=== PATIENT | female | born 1970 | race Caucasian/White ===

== ENCOUNTER 2021-10-12 13:00 | Outpatient (RCR) | payer MEDICARE, MEDICAID, SELFPAY ==
--- NOTE | 2021-09-06 14:52 | REH.OT ---
No charge Patient arrived to outpatient OT appointment and it was determined that her needs would be better served by seeing PT. This was facilitated and a PT evaluation was scheduled.
== END 2022-09-12 11:24 | disposition home or self-care (01) ==
PROVIDERS: PCP Internal Medicine; Visit Provider Internal Medicine
DX: R53.1 Weakness (principal); R53.83 Other fatigue; R26.9 Unspecified abnormalities of gait and mobility; Z51.89 Encounter for other specified aftercare
CPT/HCPCS: 84443; 97012; 97110; 97112; 97162; 97535

== ENCOUNTER 2022-10-17 15:44 | Outpatient (CLI) | payer MEDICARE, MEDICAID, SELFPAY | END 2022-10-17 15:45 | disposition home or self-care (01) | LOC: NFLDREF 15:46 | PROVIDERS: PCP Internal Medicine; Visit Provider Internal Medicine | DX: E03.9 Hypothyroidism, unspecified (principal); I10 Essential (primary) hypertension | CPT/HCPCS: 84443 ==

== ENCOUNTER 2022-10-20 11:24 | Emergency (ER) | payer MEDICARE, MEDICAID, SELFPAY ==
[2022-10-20 11:31] VITALS: BP 206/188; PULSE 77; RESP 18; TEMP 35.7; O2SAT 96
--- NOTE | 2022-10-20 11:46 | ED_ITS ---
HPI - General Adult General Time Seen by Provider: 11:46 Date Seen: 10/20/22 Chief complaint: Unspecified Complaint, Adult Stated complaint: spinal cord injury in past- pain is coming back Time Seen by Provider: 10/20/22 11:25 Source: patient Mode of arrival: ambulatory Limitations: no limitations History of Present Illness HPI narrative: Patient is a 52-year-old female with history of anxiety, hypertension, hypothyroidism, previous spinal cord injury presented emergency department for neck pain and headache. She states she has a history of spinal cord issues 10 years ago but the pain is a band much better and she has not been taking any pain medication up until this past week. She states now over the past week she has had 3 different days which she has had severe neck pain that radiates into her head causing nausea and vomiting. She states this feels like her previous symptoms. She has been taking Tylenol ibuprofen home without improvement in her symptoms. She has describes it as a spasm sensation. She has had some associated nausea and vomiting. She states she was scared she is going to have bowel incontinence but states this occurs while she is getting nauseated and vomits it she feels like pressures might cause her to have the bowel incontinence. Denies numbness, weakness, chest pain, shortness breath, abdominal pain, lightheadedness, dizziness, vision changes. Denies any recent trauma or injuries to her neck. Of note she is hypertensive but states she was taking blood pressure medications several years ago. Related Data Previous Rx's Medication Instructions Recorded cyclobenzaprine 10 mg tablet 10 mg PO TID #15 tabs 10/20/22 ondansetron 4 mg disintegrating 4 mg PO Q6H #20 tabs 10/20/22 tablet Allergies Allergy/AdvReac Type Severity Reaction Status Date / Time No Known Allergies Allergy Unknown Verified 10/20/22 11:33 Review of Systems Status of ROS: Reports: 10 or more systems reviewed and unremarkable except as noted in History and below [facility] Medical History (Updated 10/20/22 @ 13:01 by Luis Wellington DO) Hypothyroidism ?E03.9 - Hypothyroidism, unspecified (ICD-10) Spinal cord injury Anxiety ?F41.9 - Anxiety disorder, unspecified (ICD-10) Surgical History (Updated 09/01/21 @ 11:16 by Gagan Le) Status post abdominal hysterectomy ?Z90.710 - Acquired absence of both cervix and uterus (ICD-10) Social History Smoking Status: Never smoker Little interest or pleasure in doing things: not at all Feeling down, depressed, or hopeless: not at all Exam Narrative: Exam Narrative: Const: Well-nourished, Well-developed, in moderate distress Eyes: PERRL, no conjunctival injection, and symmetrical lids ENMT: Atraumatic external nose and ears. Moist mucous membranes. Neck: Symmetric, trachea midline, No thyromegaly. CVS: RRR, No murmurs or gallops. Peripheral pulses 2+ and equal in all extremities RESP: Unlabored respiratory effort. Clear to auscultation bilaterally. GI: Nontender/Nondistended, No rebound or guarding. MSK:Extremities w/o deformity, Normal Active ROM Skin: Warm, Dry. No rashes or lesions. Neuro: Normal Muscle tone, No focal neurological deficits. Psych: Awake, Alert, & Oriented x3. Appropriate mood and affect. Const: Vital Signs, click to edit/add: Vital Signs - 24 hr 10/20/22 11:31 Temperature 96.3 F L Pulse Rate [Right Pulse Oximeter] 77 Respiratory Rate 18 Blood Pressure [Ri ght Upper Arm] 206/188 H Pulse Oximetry 96 Oxygen Delivery Me thod Room Air Course Vital Signs Vital signs: Initial Vital Signs Temperature 96.3 F L 10/20/22 11:31 Temperature Source Temporal Artery Scan 10/20/22 11:31 Pulse Rate 77 10/20/22 11:31 Respiratory Rate 18 10/20/22 11:31 Blood Pressure 206/188 H 10/20/22 11:31 Blood Pressure Mean 194 H 10/20/22 11:31 Blood Pressure Position Sitting 10/20/22 11:31 Pulse Oximetry 96 10/20/22 11:31 Oxygen Delivery Method Room Air 10/20/22 11:31 Vital Signs Temperature 96.3 F L 10/20/22 11:31 Pulse Rate 77 10/20/22 11:31 Respiratory Rate 18 10/20/22 11:31 Blood Pressure 206/188 H 10/20/22 11:31 Pulse Oximetry 96 10/20/22 11:31 Oxygen Delivery Method Room Air 10/20/22 11:31 Temperature 96.3 F L 10/20/22 11:31 Pulse Rate 77 10/20/22 11:31 Respiratory Rate 18 10/20/22 11:31 Blood Pressure 206/188 H 10/20/22 11:31 Pulse Oximetry 96 10/20/22 11:31 Oxygen Delivery Method Room Air 10/20/22 11:31 Medical Decision Making MDM Narrative Medical decision making narrative: Patient is a 52-year-old female presenting to emergency department for neck pain and headache. She had similar symptoms 10 years ago has been chronically having issues with that but states he is usually throughout her whole back. Says the past week things up in worse and she is at 3 days with severe pain. Denies any recent injuries. Tylenol appropriate not been helping. Has had Tylenol and ibuprofen with no improvement in symptoms. Toradol ordered for pain along with Flexeril for the muscle spasms. Zofran was given for nausea. After her medication she states her symptoms improved significantly and feels good to go home. She states she will set up appointment with the primary care provider in her neurologist. She was hypertensive but is having no concerning symptoms at this time notes make me think a further workup was necessary. She will be discharged home. I informed it did speak to her primary care provider about her blood pressure also. She is agreeable to this plan. Discharge Plan Discharge Clinical Impression: Cervical paraspinal muscle spasm Patient Disposition: Home, Self-Care Condition: Improved Instructions: Muscle Spasm (ED) Additional Instructions: Follow-up with the primary care provider new neurologist. Take ibuprofen every 4-6 hours for pain as needed. Take the Flexeril every 8 hours as needed for your neck pain. Take the Zofran every 6 hours as needed for nausea. Use ice packs and heat for your neck pain when it occurs and try to keep your neck stretched out. Activity Level: No Restrictions Discharge Diet: Regular Prescriptions: New cyclobenzaprine 10 mg tablet 10 mg PO TID Qty: 15 0RF ondansetron 4 mg tablet,disintegrating 4 mg PO Q6H Qty: 20 0RF Follow Up/Referrals: Robbie Galvin MD [Primary Care Provider] - Stand Alone Forms: [employer] Info Instructions
[2022-10-20] MEDS: KETOROLAC 15 MG/ML inj IVP (12:06)
[2022-10-20] MEDS: CYCLOBENZAPRINE HCL 10 MG TABLET PO (12:06)
[2022-10-20] MEDS: ONDANSETRON 2 MG/ML inj 4 MG IVP (12:06)
== END 2022-10-20 13:06 | disposition home or self-care (01) ==
PROVIDERS: Emergency Provider Student in an Organized Health Care Education/Training Program; PCP Internal Medicine
DX: M62.838 Other muscle spasm (principal)
CPT/HCPCS: 96374; 96375; 99283; 99284; A9270; J1885; J2405

== ENCOUNTER 2022-11-14 09:14 | Outpatient (RCR) | payer MEDICARE, MEDICAID, SELFPAY ==
--- NOTE | 2022-11-15 07:46 | PT.OPEX ---
[facility] Outpatient Eval Start: 11/14/22 08:41 Freq: Status: Active Protocol: Document 11/14/22 08:43 AMS (Rec: 11/14/22 16:20 AMS [id number]) E-signed By Marisela Greco PT Physical Therapy Outpatient Evaluation Insurance Information Recert Due Date 02/07/23 Insurance Name Medicaid Medical Diagnosis Cervical spasm Treating Diagnosis Cervicalgia Muscle weakness Pain in thoracic spine Referring MD Robbie Galvin Subjective Subjective Patient is a 52-year-old woman who has history of of central pain syndrome who has made a remarkable improvement over last several months. As result she stopped all of her medications. She was seen in the emergency room 10/20 with neck pain with radiation to her head and was treated with anti-inflammatories and muscle relaxants. She still having some symptoms but is getting better overall. She is willing to see physical therapy. When she stopped all her medications this includes her Synthroid that she has been on for years. Her TSH is still in the normal range but would like to go back on a small dose of Synthroid. No other significant symptoms noted. -Robbie Galvin 10/24, confirmed by patient Pt presents to physical therapy with reports of chronic, 10-year history of right-sided > left neck pain, sometimes radiating into her posterior shoulder blade area and into her head. She states she had a spinal cord surgery 10 years ago after a fall backwards, where she bent her upper spinal cord. She had surgery one year after this due to progressive neurologic weakness and inability to walk or move her arms, where she had three spinal cord levels in cervical spine fused with a plate and three cadaver bone grafts. She is not sure which levels she had fused in the C- spine. Since then, she has slowly worked on learning to walk again and recover strength day-to-day, not at PT but on her own. States she stayed in bed for much of that 10 years and had a staff member helping her care for herself during this time. She did work with speech and OT at that time too. No remaining gait instability or motor function deficits. Now, she feels her pain levels are improving, but never fully recovered like her motor function has. She was diagnosed with central cord syndrome and cervical stenosis . She has tried pain clinics ( three), which she didn't feel were helpful. She would localize pain to her posterior cervical spine, radiating up to the back of her head, describing it as sharp like someone is stabbing her in the back of the head, making her unfunctionable at times. She used to have associated N/V that started end of September, but this improved after ER visit and muscle relaxants/ nausea medicine. Also describes feelings of tightness in her neck and muscle spasms that can last for 20 minute at a time. She states she has numbness and tingling in her arms and legs, which is part of her central pain syndrome since the injury . For exercise, she now is able to walk and lifts light weights every other day, which she states doesn't seem to help her symptoms. Functional limitations/aggravating factors include lifting, reaching, sleeping, reading, working a job, and all activities. Overall, she states her pain is improving. PT has not been helpful in the past; she felt like the provider was not listening to what she wanted. Easing factors include rest, massage, and mental distraction. Has also tried injections and steroids as well, which did not help a few years ago. She has not worked for 10 years due to pain and is on long- term disability from [employer]. Her goals are to return to working, decrease her pain levels, and return to reading. Pain Comments Current: 05/04, worst 14/12 Date of Last Physician Visit 10/24/22 Current Work Status [facility] Disability Preferred Name Yessenia Precautions Treatment Precautions/Contraindications Hypothyroidism, hypertension, central pain syndrome s/p spinal cord injury 10 years ago (imaging done and fusion stable 1 year ago) Therapy Limitations/Systems Review Affect Objective Other/Pertinent Objective SPINAL ALIGNMENT/POSTURE: forward head, mildly rounded shoulders CERVICAL AROM Flexion: 30 deg* Extension: WNL, pain-free Right Rotation: 25 deg* Left Rotation: 40 deg* Right sidebend: 10 deg* Left sidebend: 20 deg* *pain in posterior neck Cervical PROM: Full and pain- free, mild pain with end-range right lateral flexion THORACIC ROM Full and pain-free SHOULDER AROM Full and pain-free NECK/SHOULDER MMT/MYOTOMES: Deep neck flexor endurance test (normal is 39 sec for men , 30 sec for women): 0 sec, unable due to pain Shoulder flexion: Not performed due to high symptom irritability Shoulder abduction: Not performed due to high symptom irritability Shoulder External Rotation: Not performed due to high symptom irritability Shoulder Internal Rotation: Not performed due to high symptom irritability Head Wrestling Coach strength: WFL SPECIAL TESTS -Spurling's Test: - -Cervical distraction test: - -Upper Limb Tension Test ( Median/Ulnar/Radial): + left and right median nerve, - ulnar -Flexion rotation Test: - REFLEXES: C5: 2+ bilateral C6: unable to elicit bilaterally C7: 2+ bilateral JOINT MOBILITY/PALPATION Mild TTP over C5-C7. Joint mobility not assessed due to high symptom irritability TX: Patient was educated on anatomy, physiology as it relates to current condition and HEP with use of handout/ [employer] as well as pain neuroscience education: hurt not equaling harm, benefit of gentle movement, sore but safe principle, and body's alarm system that can be come sensitized. Patient verbalizes understanding and agrees with POC/goals PNE: Pt educated on nervous system and the importance of movement, space, and blood flow to reduce tissue sensitivity: Access Code: [email or web address] URL: [email or web address] Date: 11/14/2022 Prepared by: Marisela Greco Program Notes Comfortable, small ranges of motion to start Exercises - Seated Cervical Sidebending Stretch - 1 x daily - 7 x weekly - 3 sets - 10 reps - 5 secoonds hold - Seated Assisted Cervical Rotation with Towel - 1 x daily - 7 x weekly - 3 sets - 10 reps - Seated Cervical Retraction - 1 x daily - 7 x weekly - 3 sets - 10 reps Functional Test Performed & Score NDI: 29/50= 58% Assessment Assessment/Impression Pt is a 52-year-old female who presents with concerns of chronic right > left cervical pain with associated muscle spasms and high severity and irritability. PMH significant for incomplete spinal cord injury in 2012 and subsequent surgery/cervical fusion (pt unsure which specific levels). Since then, pt has made remarkable, full motor recovery with residual neck pain and diagnosis of central pain syndrome. Pt endorses dysesthesias in arms and legs since injury, but no dizziness ; does have infrequent, slight headaches. Signs and symptoms are likely indicating / consistent with chronic neck pain with psychological overlay. On exam, patient also demonstrates notable objective findings including painful active cervical range of motion, especially w/ flexion, right rotation, and side bending, full and pain- free passive ROM, positive median nerve tension test bilaterally, decreased cervical flexor strength, and decreased upper extremity strength, leading to difficulties with lifting, reaching, sleeping, reading, working a job, and all activities. Pt notes improvement in symptoms after gentle ROM exercises this visit with positive response to beginning PNE education. Unable to do full neurological testing or assess joint mobility this visit due to high irritability, but seems to have increased symptoms with right C3-C7 rotation/ sidebending (facet closing). Will have patient follow up with Andres Perez, spine physical therapist specialist, due to complex nature of symptoms and history. Patient is appropriate for skilled physical therapy services to address the above deficits. Pt was agreeable with plan of care and goals established. Primary Functional Limitations lifting, reaching, sleeping, reading, working a job, self- care, concentrating Plan of Care Rehabilitation Potential Fair Physical Therapy Goals in 2 sessions: Pt will demonstrate consistent HEP compliance to ensure progress in reaching established goals during course of care. In 8-12 sessions: Pt will demonstrate improved cervical rotation > 60 deg with <4/10 pain in order to perform ADLs and safe driving without pain. Pt will demonstrate understanding of PNE principles for improvement self-management of symptoms. Patient will report pain levels < 4/10 with all activity in order to improve functional mobility at home, work, and during functional leisure activities. Coordination/Communication With Referral Source Treatment Plan/Direct Interventions Gait Training,Joint Mobilization,Manual Therapy, Neuromuscular Re-ed,Self-Care/ Home Management,Therapeutic Activities,Therapeutic Exercises Frequency/Duration 1x/week for 8-12 visits Patient Will Be Discharged From Therapy Completion of LTG(s), Independent w/HEP, Independently Progressing Evaluation Billing Untimed Code Treatment Minutes 30 Complexity High Certification Information Initial Certification Date 11/14/22 Ending Certification Date 02/07/23 Provider Signature Shows Agreement With POC & Medical Necessity Physician Signature & Date Requested Please Sign/Date Here Physician Comment/Change : Physician NPI Number #
== END 2023-01-29 13:43 | disposition home or self-care (01) ==
PROVIDERS: PCP Internal Medicine; Visit Provider Internal Medicine
DX: M62.838 Other muscle spasm (principal); M54.2 Cervicalgia; M62.81 Muscle weakness (generalized); M54.6 Pain in thoracic spine; Z51.89 Encounter for other specified aftercare
CPT/HCPCS: 97112; 97163

== ENCOUNTER 2024-07-14 08:56 | Outpatient (CLI) | payer MEDICARE, MEDICAID, SELFPAY ==
--- NOTE | 2024-07-14 09:15 | CRLHL7_ITS ---
For Patients: As a result of the Century Cures Act, medical imaging exams and procedure reports are released immediately into your electronic medical record. You may view this report before your referring provider. If you have questions, please contact your health care provider. Indication: Dorsalgia. Technique: Multiplanar, multisequence MRI of the lumbar spine was performed without intravenous contrast. Comparison: None relevant available. Findings: There are 5 lumbar type vertebral segments identified. Mild chronic superior endplate compression deformity at T12. There is no discrete T1 hypointense marrow infiltrating process. The conus medullaris terminates at L1, normal. Cauda equina appears unremarkable. T12-L1: No spinal canal or neural foraminal stenosis. L1-2: No spinal canal or neural foraminal stenosis. L2-3: Large left perineural cyst with posterior vertebral body scalloping. The cyst measures up to approximately 2.3 x 1.7 x 2.8 cm (TR x AP x CC). Mild mass effect upon the left thecal sac. Right neural foramen appears patent. L3-4: Trace anterolisthesis. Disc bulge with facet arthropathy resulting in mild spinal canal narrowing. Mild neural foraminal narrowing. L4-5: Disc degeneration, with Modic type 2 endplate change. No spinal canal narrowing. No neural foraminal narrowing. Mild facet arthropathy. L5-S1: Disc degeneration, with Modic type 2 endplate change. Prior left hemilaminectomy. Central and left subarticular disc extrusion, with 7 mm inferior migration. This abuts the descending left S1 nerve. Mild neural foraminal narrowing. The visualized sacroiliac joints appear patent. Impression: 1. At L5-S1, prior left hemilaminectomy. Inferiorly migrated central and left subarticular disc extrusion abuts the descending left S1 nerve. 2. Large left foraminal perineural cyst at L2-3. 3. Mild chronic superior endplate compression deformity of T12. Dictated by Trey Leonard MD @ 07/14/2024 2:53:05 PM (Electronically Signed)
== END 2024-07-14 08:57 | disposition home or self-care (01) ==
LOC: MRI 08:59
PROVIDERS: PCP Internal Medicine; Visit Provider Internal Medicine
DX: M54.9 Dorsalgia, unspecified (principal); G96.191 Perineural cyst; M43.8X4 Other specified deforming dorsopathies, thoracic region
CPT/HCPCS: 72148

== ENCOUNTER 2024-08-19 13:00 | Outpatient (RCR) | payer MEDICARE, SELFPAY ==
--- NOTE | 2024-07-29 11:18 | PT.OPEX ---
PT [place] [facility] PT [facility] Outpatient Eval Start: 07/29/24 09:08 Freq: Status: Active Protocol: Document 07/29/24 11:13 ENM (Rec: 07/29/24 11:14 ENM [id number]) E-signed By Nancy Garsia, DPT Physical Therapy Outpatient Evaluation Insurance Information Recert Due Date 10/27/24 Insurance Name Medicare B Medical Diagnosis dorsalgia, unspecified Treating Diagnosis low back pain, impaired gait, weakness, impaired posture, Imaging Report 1. At L5-S1, prior left hemilaminectomy. Inferiorly Information migrated central and left subarticular disc extrusion abuts the descending left S1 nerve. 2. Large left foraminal perineural cyst at L2-3. 3. Mild chronic superior endplate compression deformity of T12. Referring MD [facility] Subjective Subjective Patient presents to PT for with an acute case of chronic low back pain. She states that her back is killing her. Had her first low back surgery when she was 15 years old. Had a fall 11 years ago which led to an incomplete cervical spinal cord injury from her spinal stenosis. Later had a cervical fusion for this. All of this led to her being bedridden for 8 years. She has slowly been increasing her strength throughout the years. Lately she has tried to go to the pool to stay active but has not gone for the last 2-3 months as she has been in bed due to the pain. They have been trying to use the 4WW and w/c less as they don't want to become totally reliant on it. Right now she can only find some relief at times with laying in bed. Has lost her social ability and it is hard to concentrate because of the pain. Has gone to multiple pain clinics and was on heavy pain medications but stopped those. Neurologist put her on THC which helps distract her brain from the pain. Her current pain feels different than her CRPS. They have a [employer] that helps with bathing and other activities almost every day. Heat and ice do not help at all. Has baseline UE and LE weakness from spinal cord injury. When it started: multiple years Timing: stays the same all the time Location: spreading out from the low back Irritability: mod-severe Severity: mod-severe PMHx: TBI, compression fx chronic T12, incomplete spinal cord injury, complex regional pain syndrome, anxiety attacks Pain Comments everything is aggravating easing: laying down, aggravating: every movement Occupation disability Objective Other/Pertinent Lumbar AROM: Objective FF: hands to thigh, very painful EXT: able to achieve 25% of range, feels better SB: unable to attempt due to pain ROT: unable to attempt due to pain strength: they display decreased functional core strength in sitting needing UE support as well as functional LE weakness as seen with STS Unable to formally assess due to pain levels Palpation/joint mobility: Thoracic PA mobilization: stiffness throughout Lumbar PA mobilization: very tender throughout lumbar spine with light PAs + for pain palpating of lower lumbar paraspinals (R>L) gait/balance: Patient ambulates with an antalgic gait pattern, unsteadiness with foot placement, flexed trunk with cervical extension posture. They rely on wall for support and balance. Noted decreased weight acceptance of LLE Posture: Patient rests with cervical spine into 25% cervical flexion and trying to engage trunk extension primarily through thoracic spine Assessment Assessment/ Patient is a 53 year old female presenting with an Impression acute case of chronic low back pain. Pains started 2-3 months ago and have made her become inactive again due to their severity. Patients medical history is significant for TBI, lumbar surgery at age 15, cervical spine fusion after a fall and incomplete spinal cord injury. Over the last 8 years they have been working hard to avoid immobility and being bedridden again. Current pain levels are limiting Yessenia's ability to participate in functional mobility, social activities and go to the gym to swim. Upon assessment patients pains are very significant and irritable. Their lumbar spine ROM is significantly limited and they are tender to light PAs throughout lumbar spine. They ambulate with an antalgic gait pattern, flexed trunk with cervical spine extension compensation without AD. Patient responds positively to extension based activities with improved tightness in lumbar spine and ability to stand upright with ambulation. Yessenia would greatly benefit from skilled PT to address impairments stated above in order to perform all functional mobility and recreational activities without significant discomfort or difficulty. Primary Functional all movements Limitations Plan of Care Rehabilitation Fair Potential Rehabilitation Fair-poor due to chronic nature of symptoms and complex Potential Comments medical history Physical Therapy In 10-12 visits: Goals 1. Patient will be IND with HEP and self management of symptoms 2. Patient will be able to comfortably lay at night for improved sleep hygiene 3. Patient will ambulate with improved mechanics and upright posture with LRAD for 120' to progress toward PLOF 4. Patient will be able to return to the gym without increase in back pain for improved fitness 5. Patient will return to social activities with self reported tolerable levels of pain for improved QOL Coordination/ Referral Source Communication With Treatment Plan/ Dry Needling,Electrical Stimulation,Gait Training,Heat, Direct Interventions Ice/Cold/Vasopneumatic,Joint Mobilization,Manual Therapy,Neuromuscular Re-ed,Self-Care/Home Management, Therapeutic Activities,Therapeutic Exercises,Traction ( Mechanical) Frequency/Duration 1x a week for 10 weeks, as needed for 2-3 visits Patient Will Be Completion of LTG(s),Independent w/HEP Discharged From Therapy Evaluation Billing Untimed Code 22 Treatment Minutes Complexity Moderate Certification Information Initial 07/29/24 Certification Date Ending Certification 10/27/24 Date Provider Signature Yes Required Provider Signature POC & Medical Necessity Shows Agreement With Physician NPI Number Write NPI# Here Physician Comment/ : Change Physician Signature Please Sign/Date Here & Date Requested
== END 2024-12-17 23:59 | disposition home or self-care (01) ==
PROVIDERS: PCP Internal Medicine; Visit Provider Internal Medicine
DX: M54.50 Low back pain, unspecified (principal); Z51.89 Encounter for other specified aftercare
CPT/HCPCS: 97110; 97112; 97140; 97162; 97530

== ENCOUNTER 2025-01-04 10:28 | Outpatient (CLI) | payer MEDICARE, MEDICAID, SELFPAY ==
--- NOTE | 2025-01-04 11:00 | CRLHL7_ITS ---
For Patients: As a result of the Century Cures Act, medical imaging exams and procedure reports are released immediately into your electronic medical record. You may view this report before your referring provider. If you have questions, please contact your health care provider. INDICATION: ABDOMINAL PAIN, CHRONIC TECHNIQUE: CT abdomen and pelvis acquired with 91 cc Isovue 370 IV contrast. COMPARISON: June 2021. FINDINGS: Lower chest: Stable 3 millimeter left lower lobe subpleural nodule, statistically benign. Atherosclerotic calcifications. ABDOMEN: Liver: Normal enhancement. No focal suspicious hepatic lesions. Gallbladder and biliary: Cholecystectomy. Normal caliber bile ducts. Spleen: Normal size and enhancement. Pancreas: Normal enhancement without peripancreatic inflammatory changes or ductal dilatation. Adrenal glands: Normal adrenal glands. Kidneys and ureters: Normal enhancement. No radio-opaque calculi. No hydroureteronephrosis. GI tract: The stomach is relatively decompressed. Normal caliber small and large bowel loops. Normal appendix. Vascular structures: Normal caliber aorta with atherosclerotic calcifications. Lymph nodes: No lymphadenopathy in the abdomen or pelvis by size criteria. Peritoneum: No free air, free fluid, or focal drainable fluid collection. PELVIS: Genitourinary system: Normal urinary bladder. Hysterectomy. SKELETAL STRUCTURES AND SOFT TISSUES: Lumbar spondylosis. IMPRESSION: No discrete acute process in the abdomen or pelvis. No obstruction. No imaging findings to explain the reported clinical symptoms. Please note that all CT scans at this facility use dose modulation, iterative reconstruction, and/or weight-based dosing when appropriate to reduce radiation dose to as low as reasonably achievable. Dictated by Kirby Horta MD @ 01/04/2025 1:42:37 PM (Electronically Signed)
== END 2025-01-04 10:29 | disposition home or self-care (01) ==
LOC: CT 10:29
PROVIDERS: PCP Internal Medicine; Visit Provider Internal Medicine
DX: R10.9 Unspecified abdominal pain (principal)
CPT/HCPCS: 74177; Q9967